=== PATIENT | female | born 1965 | race Caucasian/White ===

== ENCOUNTER 2021-02-10 12:36 | Inpatient (IN) ==
[2021-02-10] MEDS ORDERED: D5% in Water 1,000 ML IVC PRN (13:01)
[2021-02-10] MEDS ORDERED: *HR* Dextrose 50 % in Water (Vial) 50 ML VIAL IVP PRN (13:01)
[2021-02-10] MEDS ORDERED: Dextrose Gel 15 GM/37.5 ML TUBE PO PRN ×2 (13:01)
[2021-02-10] MEDS ORDERED: metroNIDAZOLE 500 MG TABLET PO SCH (15:00)
[2021-02-10] MEDS ORDERED: *HR* OxyCODONE Immed Rel 5 MG TABLET PO PRN (20:26)
[2021-02-10] MEDS: *HR* Metformin 500 MG TABLET PO SCH (21:14)
[2021-02-10] MEDS: *HR* OxyCODONE Immed Rel 5 MG TABLET PO PRN (21:14)
[2021-02-10] MEDS: Lactobacillus 1 EACH CAP.SPRINK PO SCH (21:14)
[2021-02-10] MEDS: Gabapentin 300 MG CAPSULE PO PRN (21:14)
[2021-02-10] MEDS: Famotidine 20 MG TABLET PO SCH (21:15)
[2021-02-10] MEDS: BuPROPion SR (12 HR) 150 MG TABLET PO SCH (21:15)
[2021-02-10] MEDS: Insulin LISPRO 300 UNITS/3 ML VIAL SUBQ SCH ×2 (21:16)
[2021-02-10] MEDS: tiZANidine 4 MG TABLET PO PRN (22:49)
[2021-02-10] MEDS: cefTRIAXone 2,000 MG in 0.9 % Sodium Chloride Mini Bag 100 ML IVPB SCH (22:50)
[2021-02-10] MEDS ORDERED: *HR* HYDROmorphone (PF) 1 MG/ML SYRINGE IVP ONE (23:40)
[2021-02-11] MEDS: *HR* OxyCODONE Immed Rel 5 MG TABLET PO PRN ×5 (03:56→22:49)
[2021-02-11 06:01] LABS: Basophils # 0.1 K/mcL (0.0-0.2); Basophils % 0.5 %; Eosinophils # 0.8 K/mcL (0.0-0.6); Hemoglobin 9.4 g/dL (11.5-15.4); Lymphocytes # 2.6 K/mcL (0.6-4.6); Lymphocytes % 16.3 %; Mean Corpuscular HGB Conc 32.4 g/dL (31.6-35.5); Mean Corpuscular Hemoglobin 29.1 pg (28.0-33.3); Mean Corpuscular Volume 89.8 fL (83.0-100.0); Mean Platelet Volume 9.6 fL (9.4-12.4); Monocytes % 6.3 %; Neutrophils # 11.1 K/mcL (1.6-8.9); Platelet Count 519 K/mcL (140-400); Red Blood Count 3.23 M/mcL (3.82-4.97); Segmented Neutrophils % 69.9 %; White Blood Count 15.9 K/mcL (4.3-11.1)
[2021-02-11 06:28] LABS: BUN/Creatinine Ratio 22 (6-26); Blood Urea Nitrogen 19 mg/dL (6-20); Calcium 8.8 mg/dL (8.6-10.3); Carbon Dioxide 24 mEq/L (23-29); Chloride 106 mEq/L (98-107); Glucose 144 mg/dL (70-105); Osmolality,Calculated 293 (280-300); Potassium 3.6 mEq/L (3.5-5.1); Sodium 139 mEq/L (136-145); eGFR For African Americans > 60 (> 60); eGFR For Non-African Americans > 60 (> 60)
[2021-02-11] MEDS ORDERED: DEXTROSE ISO IV SCH (09:00)
[2021-02-11] MEDS ORDERED: [UNRECOGNIZED DRUG - OTHER] IV SCH (09:00)
[2021-02-11] MEDS ORDERED: CEFTRIAXONE NA IV SCH (09:00)
[2021-02-11] MEDS: *HR* Metformin 500 MG TABLET PO SCH ×2 (09:04→17:13)
[2021-02-11] MEDS: *HR* GlipiZIDE XL (24 HR) 10 MG TABLET PO SCH (09:05)
[2021-02-11] MEDS: Gabapentin 300 MG CAPSULE PO PRN (09:06)
[2021-02-11] MEDS: Famotidine 20 MG TABLET PO SCH ×2 (09:06→21:01)
[2021-02-11] MEDS: Lactobacillus 1 EACH CAP.SPRINK PO SCH ×2 (09:06→20:59)
[2021-02-11] MEDS: BuPROPion SR (12 HR) 150 MG TABLET PO SCH ×2 (09:06→21:01)
[2021-02-11] MEDS: BISOPROLOL FUMARATE 10 MG PO SCH (09:07)
[2021-02-11] MEDS: Lisinopril-HCTZ 20-12.5mg TABLET PO SCH (09:07)
[2021-02-11] MEDS: Insulin LISPRO 300 UNITS/3 ML VIAL SUBQ SCH ×4 (09:08→21:00)
[2021-02-11] MEDS: tiZANidine 4 MG TABLET PO PRN ×2 (10:31→21:00)
[2021-02-11] MEDS ORDERED: *HR* HYDROmorphone (PF) 1 MG/ML SYRINGE IVP ONE (11:10)
[2021-02-11] MEDS: Gabapentin 300 MG CAPSULE PO SCH ×2 (17:13→21:00)
[2021-02-11] MEDS: cefTRIAXone 2,000 MG in 0.9 % Sodium Chloride Mini Bag 100 ML IVPB SCH (21:02)
[2021-02-12] MEDS: tiZANidine 4 MG TABLET PO PRN ×3 (03:44→21:12)
[2021-02-12] MEDS: *HR* OxyCODONE Immed Rel 5 MG TABLET PO PRN ×4 (03:44→18:11)
[2021-02-12] MEDS: *HR* GlipiZIDE XL (24 HR) 10 MG TABLET PO SCH (09:45)
[2021-02-12] MEDS: Lisinopril-HCTZ 20-12.5mg TABLET PO SCH (09:45)
[2021-02-12] MEDS: Famotidine 20 MG TABLET PO SCH ×2 (09:46→21:11)
[2021-02-12] MEDS: Lactobacillus 1 EACH CAP.SPRINK PO SCH ×2 (09:46→21:11)
[2021-02-12] MEDS: *HR* Metformin 500 MG TABLET PO SCH ×2 (09:46→17:25)
[2021-02-12] MEDS: Insulin LISPRO 300 UNITS/3 ML VIAL SUBQ SCH ×4 (09:46→21:11)
[2021-02-12] MEDS: Gabapentin 300 MG CAPSULE PO SCH ×4 (09:46→21:13)
[2021-02-12] MEDS: BuPROPion SR (12 HR) 150 MG TABLET PO SCH ×2 (09:46→21:11)
[2021-02-12] MEDS: BISOPROLOL FUMARATE 10 MG PO SCH (09:47)
[2021-02-12] MEDS ORDERED: *HR* HYDROmorphone 2 MG/ML SYRINGE IVP ONE (10:58)
[2021-02-12] MEDS: cefTRIAXone 2,000 MG in 0.9 % Sodium Chloride Mini Bag 100 ML IVPB SCH (21:14)
[2021-02-12] MEDS ORDERED: *HR* HYDROmorphone (PF) 1 MG/ML SYRINGE IVP ONE (21:42)
[2021-02-13] MEDS: *HR* Rivaroxaban 15 MG TABLET PO SCH ×2 (02:17→16:21)
[2021-02-13] MEDS: tiZANidine 4 MG TABLET PO PRN ×4 (02:18→23:03)
[2021-02-13] MEDS: *HR* OxyCODONE Immed Rel 5 MG TABLET PO PRN ×5 (02:18→20:41)
[2021-02-13 04:54] LABS: Basophils # 0.1 K/mcL (0.0-0.2); Basophils % 0.6 %; Eosinophils # 0.8 K/mcL (0.0-0.6); Eosinophils % 5.8 %; Hematocrit 28.7 % (35.3-44.9); Hemoglobin 9.3 g/dL (11.5-15.4); Immature Granulocytes % 2.3 % (0-4); Lymphocytes % 21.2 %; Mean Corpuscular HGB Conc 32.4 g/dL (31.6-35.5); Mean Corpuscular Hemoglobin 29.3 pg (28.0-33.3); Mean Corpuscular Volume 90.5 fL (83.0-100.0); Mean Platelet Volume 9.5 fL (9.4-12.4); Monocytes % 6.8 %; Platelet Count 507 K/mcL (140-400); Red Blood Count 3.17 M/mcL (3.82-4.97); Red Cell Distribution Width 14.2 % (11.5-14.5); Segmented Neutrophils % 63.3 %; White Blood Count 14.2 K/mcL (4.3-11.1)
[2021-02-13 05:06] LABS: BUN/Creatinine Ratio 21 (6-26); Blood Urea Nitrogen 18 mg/dL (6-20); Calcium 8.5 mg/dL (8.6-10.3); Carbon Dioxide 25 mEq/L (23-29); Chloride 106 mEq/L (98-107); Glucose 126 mg/dL (70-105); Osmolality,Calculated 289 (280-300); Potassium 4.2 mEq/L (3.5-5.1); Sodium 138 mEq/L (136-145); eGFR For African Americans > 60 (> 60); eGFR For Non-African Americans > 60 (> 60)
[2021-02-13 05:14] LABS: Platelet Estimate Increased (Normal)
[2021-02-13] MEDS: *HR* GlipiZIDE XL (24 HR) 10 MG TABLET PO SCH (07:54)
[2021-02-13] MEDS: Gabapentin 300 MG CAPSULE PO SCH ×4 (07:54→20:40)
[2021-02-13] MEDS: BuPROPion SR (12 HR) 150 MG TABLET PO SCH ×2 (07:54→20:40)
[2021-02-13] MEDS: Famotidine 20 MG TABLET PO SCH ×2 (07:54→20:40)
[2021-02-13] MEDS: *HR* Metformin 500 MG TABLET PO SCH ×2 (07:54→16:21)
[2021-02-13] MEDS: Lisinopril-HCTZ 20-12.5mg TABLET PO SCH (07:54)
[2021-02-13] MEDS: Lactobacillus 1 EACH CAP.SPRINK PO SCH ×2 (07:55→20:39)
[2021-02-13] MEDS: Insulin LISPRO 300 UNITS/3 ML VIAL SUBQ SCH ×4 (07:58→21:48)
[2021-02-13] MEDS: BISOPROLOL FUMARATE 10 MG PO SCH (09:30)
[2021-02-13] MEDS: Ondansetron ODT 4 MG TAB.RAPDIS SL PRN (20:42)
[2021-02-14] MEDS: *HR* OxyCODONE Immed Rel 5 MG TABLET PO PRN ×5 (00:44→16:03)
[2021-02-14] MEDS: Insulin LISPRO 300 UNITS/3 ML VIAL SUBQ SCH ×4 (08:31→21:09)
[2021-02-14] MEDS: Lisinopril-HCTZ 20-12.5mg TABLET PO SCH (08:32)
[2021-02-14] MEDS: Famotidine 20 MG TABLET PO SCH ×2 (08:33→21:09)
[2021-02-14] MEDS: Gabapentin 300 MG CAPSULE PO SCH ×3 (08:33→21:09)
[2021-02-14] MEDS: *HR* Rivaroxaban 15 MG TABLET PO SCH (08:33)
[2021-02-14] MEDS: tiZANidine 4 MG TABLET PO PRN ×3 (08:33→16:02)
[2021-02-14] MEDS: BuPROPion SR (12 HR) 150 MG TABLET PO SCH ×2 (08:33→21:09)
[2021-02-14] MEDS: *HR* GlipiZIDE XL (24 HR) 10 MG TABLET PO SCH (08:33)
[2021-02-14] MEDS: *HR* Metformin 500 MG TABLET PO SCH ×2 (08:33→16:16)
[2021-02-14] MEDS: Lactobacillus 1 EACH CAP.SPRINK PO SCH ×2 (08:33→21:09)
[2021-02-14] MEDS: BISOPROLOL FUMARATE 10 MG PO SCH (09:31)
[2021-02-14] MEDS ORDERED: *HR* OxyCODONE/APAP 5/325 TABLET PO PRN (20:38)
[2021-02-14] MEDS: *HR* OxyCODONE/APAP 10/325 TABLET PO PRN (21:09)
[2021-02-15] MEDS: tiZANidine 4 MG TABLET PO PRN ×3 (02:57→20:42)
[2021-02-15] MEDS: *HR* OxyCODONE/APAP 10/325 TABLET PO PRN ×5 (04:08→22:54)
[2021-02-15 04:50] LABS: Hematocrit 30.7 % (35.3-44.9); Hemoglobin 9.7 g/dL (11.5-15.4)
[2021-02-15] MEDS: Insulin LISPRO 300 UNITS/3 ML VIAL SUBQ SCH ×4 (09:36→20:43)
[2021-02-15] MEDS: *HR* GlipiZIDE XL (24 HR) 10 MG TABLET PO SCH (09:43)
[2021-02-15] MEDS: Famotidine 20 MG TABLET PO SCH ×2 (09:43→20:42)
[2021-02-15] MEDS: BuPROPion SR (12 HR) 150 MG TABLET PO SCH ×2 (09:43→20:43)
[2021-02-15] MEDS: Gabapentin 300 MG CAPSULE PO SCH ×3 (09:43→20:42)
[2021-02-15] MEDS: Lisinopril-HCTZ 20-12.5mg TABLET PO SCH (09:43)
[2021-02-15] MEDS: *HR* Metformin 500 MG TABLET PO SCH ×2 (09:43→16:15)
[2021-02-15] MEDS: Lactobacillus 1 EACH CAP.SPRINK PO SCH ×2 (09:43→20:43)
[2021-02-15] MEDS: BISOPROLOL FUMARATE 10 MG PO SCH (09:43)
[2021-02-15] MEDS ORDERED: *HR* OxyCODONE Immed Rel 5 MG TABLET PO PRN (10:06)
[2021-02-15] MEDS: *HR* Rivaroxaban 15 MG TABLET PO SCH ×2 (16:15→20:43)
[2021-02-16] MEDS: *HR* OxyCODONE/APAP 10/325 TABLET PO PRN ×5 (04:32→20:42)
[2021-02-16] MEDS: Insulin LISPRO 300 UNITS/3 ML VIAL SUBQ SCH ×4 (08:12→20:43)
[2021-02-16] MEDS: BuPROPion SR (12 HR) 150 MG TABLET PO SCH ×2 (08:17→20:42)
[2021-02-16] MEDS: Lactobacillus 1 EACH CAP.SPRINK PO SCH ×2 (08:17→20:42)
[2021-02-16] MEDS: *HR* GlipiZIDE XL (24 HR) 10 MG TABLET PO SCH (08:17)
[2021-02-16] MEDS: Lisinopril-HCTZ 20-12.5mg TABLET PO SCH (08:18)
[2021-02-16] MEDS: *HR* Rivaroxaban 15 MG TABLET PO SCH ×2 (08:18→20:42)
[2021-02-16] MEDS: Famotidine 20 MG TABLET PO SCH ×2 (08:18→20:42)
[2021-02-16] MEDS: Gabapentin 300 MG CAPSULE PO SCH ×3 (08:18→20:42)
[2021-02-16] MEDS: BISOPROLOL FUMARATE 10 MG PO SCH (08:18)
[2021-02-16] MEDS: *HR* Metformin 500 MG TABLET PO SCH ×2 (08:18→16:32)
[2021-02-16] MEDS: Nystatin POWDER 30 GM BOTTLE TP SCH ×2 (16:36→20:42)
[2021-02-16] MEDS: tiZANidine 4 MG TABLET PO PRN (20:42)
[2021-02-17] MEDS: *HR* OxyCODONE/APAP 10/325 TABLET PO PRN ×6 (00:44→21:49)
[2021-02-17] MEDS: Insulin LISPRO 300 UNITS/3 ML VIAL SUBQ SCH ×4 (07:50→21:50)
[2021-02-17] MEDS: Lactobacillus 1 EACH CAP.SPRINK PO SCH ×2 (09:29→21:50)
[2021-02-17] MEDS: *HR* Rivaroxaban 15 MG TABLET PO SCH ×2 (09:29→21:49)
[2021-02-17] MEDS: *HR* Metformin 500 MG TABLET PO SCH ×2 (09:29→17:30)
[2021-02-17] MEDS: Lisinopril-HCTZ 20-12.5mg TABLET PO SCH (09:30)
[2021-02-17] MEDS: BuPROPion SR (12 HR) 150 MG TABLET PO SCH ×2 (09:30→21:50)
[2021-02-17] MEDS: Famotidine 20 MG TABLET PO SCH ×2 (09:30→21:50)
[2021-02-17] MEDS: BISOPROLOL FUMARATE 10 MG PO SCH (09:30)
[2021-02-17] MEDS: *HR* GlipiZIDE XL (24 HR) 10 MG TABLET PO SCH (09:30)
[2021-02-17] MEDS: Gabapentin 300 MG CAPSULE PO SCH ×3 (09:30→21:50)
[2021-02-17] MEDS: Nystatin POWDER 30 GM BOTTLE TP SCH ×2 (09:30→21:50)
[2021-02-17] MEDS: tiZANidine 4 MG TABLET PO PRN (21:50)
[2021-02-18] MEDS: *HR* OxyCODONE/APAP 10/325 TABLET PO PRN ×4 (02:52→18:54)
[2021-02-18] MEDS: Insulin LISPRO 300 UNITS/3 ML VIAL SUBQ SCH ×4 (08:47→21:38)
[2021-02-18] MEDS: *HR* Metformin 500 MG TABLET PO SCH ×2 (09:04→16:58)
[2021-02-18] MEDS: *HR* GlipiZIDE XL (24 HR) 10 MG TABLET PO SCH (09:04)
[2021-02-18] MEDS: Gabapentin 300 MG CAPSULE PO SCH ×3 (09:04→21:37)
[2021-02-18] MEDS: Lisinopril-HCTZ 20-12.5mg TABLET PO SCH (09:05)
[2021-02-18] MEDS: *HR* Rivaroxaban 15 MG TABLET PO SCH ×2 (09:05→21:38)
[2021-02-18] MEDS: Famotidine 20 MG TABLET PO SCH ×2 (09:05→21:37)
[2021-02-18] MEDS: BuPROPion SR (12 HR) 150 MG TABLET PO SCH ×2 (09:05→21:37)
[2021-02-18] MEDS: BISOPROLOL FUMARATE 10 MG PO SCH (09:05)
[2021-02-18] MEDS: Nystatin POWDER 30 GM BOTTLE TP SCH ×2 (09:05→21:38)
[2021-02-18] MEDS: Lactobacillus 1 EACH CAP.SPRINK PO SCH ×2 (09:05→21:37)
[2021-02-18] MEDS: tiZANidine 4 MG TABLET PO PRN (18:54)
[2021-02-19] MEDS: *HR* OxyCODONE/APAP 10/325 TABLET PO PRN ×5 (02:37→21:54)
[2021-02-19 06:47] LABS: Hematocrit 31.7 % (35.3-44.9); Mean Corpuscular HGB Conc 31.5 g/dL (31.6-35.5); Mean Corpuscular Hemoglobin 28.6 pg (28.0-33.3); Mean Corpuscular Volume 90.6 fL (83.0-100.0); Mean Platelet Volume 9.6 fL (9.4-12.4); Platelet Count 476 K/mcL (140-400); Red Cell Distribution Width 13.7 % (11.5-14.5); White Blood Count 11.3 K/mcL (4.3-11.1)
[2021-02-19] MEDS: Gabapentin 300 MG CAPSULE PO SCH ×3 (08:43→21:53)
[2021-02-19] MEDS: *HR* Metformin 500 MG TABLET PO SCH ×2 (08:43→16:11)
[2021-02-19] MEDS: *HR* Rivaroxaban 15 MG TABLET PO SCH ×2 (08:43→21:53)
[2021-02-19] MEDS: *HR* GlipiZIDE XL (24 HR) 10 MG TABLET PO SCH (08:44)
[2021-02-19] MEDS: Famotidine 20 MG TABLET PO SCH ×2 (08:44→21:54)
[2021-02-19] MEDS: Lisinopril-HCTZ 20-12.5mg TABLET PO SCH (08:44)
[2021-02-19] MEDS: BuPROPion SR (12 HR) 150 MG TABLET PO SCH ×2 (08:44→21:54)
[2021-02-19] MEDS: Lactobacillus 1 EACH CAP.SPRINK PO SCH ×2 (08:44→21:53)
[2021-02-19] MEDS: BISOPROLOL FUMARATE 10 MG PO SCH (08:45)
[2021-02-19 11:45] LABS: Alanine Aminotransferase 20 Units/L (7-52); Albumin 3.6 g/dL (3.5-5.7); Albumin/Globulin Ratio 1.2 (1.1-2.2); Alkaline Phosphatase 64 Units/L (34-104); Aspartate Amino Transferase 19 Units/L (13-39); BUN/Creatinine Ratio 32 (6-26); Bilirubin,Total 0.2 mg/dL (0.3-1.0); Blood Urea Nitrogen 29 mg/dL (6-20); Calcium 9.7 mg/dL (8.6-10.3); Carbon Dioxide 24 mEq/L (23-29); Chloride 103 mEq/L (98-107); Glucose 102 mg/dL (70-105); Magnesium 1.4 mg/dL (1.6-2.6); Osmolality,Calculated 288 (280-300); Potassium 4.3 mEq/L (3.5-5.1); Sodium 136 mEq/L (136-145); Total Protein 6.6 g/dL (6.4-8.9); eGFR For African Americans > 60 (> 60); eGFR For Non-African Americans > 60 (> 60)
[2021-02-19 11:50] LABS: C-Reactive Protein 11 mg/L (Less than 10)
[2021-02-19] MEDS: Insulin LISPRO 300 UNITS/3 ML VIAL SUBQ SCH ×3 (12:19→21:55)
[2021-02-19] MEDS: Nystatin POWDER 30 GM BOTTLE TP SCH ×2 (12:19→21:55)
[2021-02-19] MEDS: tiZANidine 4 MG TABLET PO PRN (21:53)
[2021-02-20] MEDS: *HR* OxyCODONE/APAP 10/325 TABLET PO PRN ×5 (02:07→23:01)
[2021-02-20] MEDS: Ondansetron ODT 4 MG TAB.RAPDIS SL PRN (02:08)
[2021-02-20] MEDS: BuPROPion SR (12 HR) 150 MG TABLET PO SCH ×2 (08:34→21:02)
[2021-02-20] MEDS: tiZANidine 4 MG TABLET PO PRN ×2 (08:35→21:03)
[2021-02-20] MEDS: *HR* Metformin 500 MG TABLET PO SCH ×2 (08:35→17:27)
[2021-02-20] MEDS: Nystatin POWDER 30 GM BOTTLE TP SCH ×2 (08:35→21:02)
[2021-02-20] MEDS: *HR* GlipiZIDE XL (24 HR) 10 MG TABLET PO SCH (08:35)
[2021-02-20] MEDS: Lactobacillus 1 EACH CAP.SPRINK PO SCH ×2 (08:35→21:01)
[2021-02-20] MEDS: *HR* Rivaroxaban 15 MG TABLET PO SCH ×2 (08:35→21:03)
[2021-02-20] MEDS: Insulin LISPRO 300 UNITS/3 ML VIAL SUBQ SCH ×4 (08:35→21:00)
[2021-02-20] MEDS: Gabapentin 300 MG CAPSULE PO SCH ×3 (08:35→21:02)
[2021-02-20] MEDS: Famotidine 20 MG TABLET PO SCH ×2 (08:35→21:02)
[2021-02-20] MEDS: BISOPROLOL FUMARATE 10 MG PO SCH (08:36)
[2021-02-20] MEDS: Lisinopril-HCTZ 20-12.5mg TABLET PO SCH (08:37)
[2021-02-21] MEDS: *HR* OxyCODONE/APAP 10/325 TABLET PO PRN ×4 (04:44→18:42)
[2021-02-21] MEDS: Insulin LISPRO 300 UNITS/3 ML VIAL SUBQ SCH ×4 (08:39→19:57)
[2021-02-21] MEDS: *HR* GlipiZIDE XL (24 HR) 10 MG TABLET PO SCH (08:48)
[2021-02-21] MEDS: Gabapentin 300 MG CAPSULE PO SCH ×3 (08:48→19:56)
[2021-02-21] MEDS: BISOPROLOL FUMARATE 10 MG PO SCH (08:48)
[2021-02-21] MEDS: BuPROPion SR (12 HR) 150 MG TABLET PO SCH ×2 (08:48→19:56)
[2021-02-21] MEDS: *HR* Metformin 500 MG TABLET PO SCH ×2 (08:48→16:31)
[2021-02-21] MEDS: Famotidine 20 MG TABLET PO SCH ×2 (08:48→19:56)
[2021-02-21] MEDS: *HR* Rivaroxaban 15 MG TABLET PO SCH ×2 (08:48→19:57)
[2021-02-21] MEDS: Lactobacillus 1 EACH CAP.SPRINK PO SCH ×2 (08:48→19:56)
[2021-02-21] MEDS: Nystatin POWDER 30 GM BOTTLE TP SCH ×2 (08:48→19:56)
[2021-02-21] MEDS: Lisinopril-HCTZ 20-12.5mg TABLET PO SCH (08:48)
[2021-02-21] MEDS: tiZANidine 4 MG TABLET PO PRN ×2 (12:53→19:56)
[2021-02-22] MEDS: *HR* OxyCODONE/APAP 10/325 TABLET PO PRN ×4 (02:16→21:20)
[2021-02-22] MEDS: Insulin LISPRO 300 UNITS/3 ML VIAL SUBQ SCH ×4 (08:50→21:20)
[2021-02-22] MEDS: *HR* Rivaroxaban 15 MG TABLET PO SCH ×2 (09:48→21:20)
[2021-02-22] MEDS: BuPROPion SR (12 HR) 150 MG TABLET PO SCH ×2 (09:48→21:20)
[2021-02-22] MEDS: *HR* Metformin 500 MG TABLET PO SCH ×2 (09:48→17:03)
[2021-02-22] MEDS: Famotidine 20 MG TABLET PO SCH ×2 (09:48→21:20)
[2021-02-22] MEDS: *HR* GlipiZIDE XL (24 HR) 10 MG TABLET PO SCH (09:48)
[2021-02-22] MEDS: Lactobacillus 1 EACH CAP.SPRINK PO SCH ×2 (09:48→21:20)
[2021-02-22] MEDS: Gabapentin 300 MG CAPSULE PO SCH ×3 (09:48→21:20)
[2021-02-22] MEDS: Lisinopril-HCTZ 20-12.5mg TABLET PO SCH (09:49)
[2021-02-22] MEDS: BISOPROLOL FUMARATE 10 MG PO SCH (09:49)
[2021-02-22] MEDS: Nystatin POWDER 30 GM BOTTLE TP SCH ×2 (09:49→21:21)
[2021-02-22] MEDS: tiZANidine 4 MG TABLET PO PRN ×2 (09:53→17:03)
[2021-02-22] MEDS ORDERED: Fluconazole 150 MG TABLET PO ONE (16:32)
[2021-02-23] MEDS: *HR* OxyCODONE/APAP 10/325 TABLET PO PRN ×3 (01:14→12:27)
[2021-02-23] MEDS: tiZANidine 4 MG TABLET PO PRN ×2 (01:16→12:28)
[2021-02-23 07:32] VITALS: BP 104/71; PULSE 73; RESP 16; TEMP 98; O2SAT 99
[2021-02-23] MEDS: BuPROPion SR (12 HR) 150 MG TABLET PO SCH (07:32)
[2021-02-23] MEDS: *HR* GlipiZIDE XL (24 HR) 10 MG TABLET PO SCH (07:32)
[2021-02-23] MEDS: *HR* Metformin 500 MG TABLET PO SCH (07:32)
[2021-02-23] MEDS: *HR* Rivaroxaban 15 MG TABLET PO SCH (07:32)
[2021-02-23] MEDS: Lactobacillus 1 EACH CAP.SPRINK PO SCH (07:32)
[2021-02-23] MEDS: Famotidine 20 MG TABLET PO SCH (07:32)
[2021-02-23] MEDS: Gabapentin 300 MG CAPSULE PO SCH (07:32)
[2021-02-23] MEDS: Lisinopril-HCTZ 20-12.5mg TABLET PO SCH (07:34)
[2021-02-23] MEDS: Insulin LISPRO 300 UNITS/3 ML VIAL SUBQ SCH ×2 (07:35→13:26)
[2021-02-23] MEDS: Nystatin POWDER 30 GM BOTTLE TP SCH (07:36)
[2021-02-23] MEDS: BISOPROLOL FUMARATE 10 MG PO SCH (07:36)
== END 2021-02-23 14:10 | disposition home health service (06) | DRG 560 ==
LOC: INPGRE 19:12
PROVIDERS: ADMIT Family Medicine; ATTEND Family Medicine

== ENCOUNTER 2021-08-30 15:37 | Inpatient (IN) ==
[2021-09-01] MEDS ORDERED: Ondansetron ODT 4 MG TAB.RAPDIS PO PRN (15:55)
[2021-09-01] MEDS: *HR* Metformin 500 MG TABLET PO SCH (21:31)
[2021-09-01] MEDS: Gabapentin 300 MG CAPSULE PO SCH (21:32)
[2021-09-01] MEDS: *HR* OxyCODONE ER (12 HR) 10 MG TABLET PO SCH (21:35)
[2021-09-01] MEDS: cephALEXin 500 MG CAPSULE PO SCH (21:36)
[2021-09-01] MEDS: Lactobacillus 1 EACH CAP.SPRINK PO SCH (21:36)
[2021-09-01] MEDS: BuPROPion SR (12 HR) 150 MG TABLET PO SCH (21:37)
[2021-09-01] MEDS: tiZANidine 4 MG TABLET PO PRN (21:39)
[2021-09-02] MEDS: *HR* OxyCODONE/APAP 10/325 TABLET PO PRN ×4 (01:26→20:54)
[2021-09-02] MEDS: Gabapentin 300 MG CAPSULE PO SCH ×3 (05:43→20:55)
[2021-09-02] MEDS: *HR* OxyCODONE ER (12 HR) 10 MG TABLET PO SCH ×2 (05:44→17:39)
[2021-09-02] MEDS: tiZANidine 4 MG TABLET PO PRN ×2 (06:29→20:54)
[2021-09-02] MEDS: Lisinopril-HCTZ 20-12.5mg TABLET PO SCH (08:50)
[2021-09-02] MEDS: GlipiZIDE 5 MG TABLET PO SCH (08:50)
[2021-09-02] MEDS: *HR* Metformin 500 MG TABLET PO SCH ×2 (08:50→20:55)
[2021-09-02] MEDS: BuPROPion SR (12 HR) 150 MG TABLET PO SCH ×2 (08:50→20:54)
[2021-09-02] MEDS: Lactobacillus 1 EACH CAP.SPRINK PO SCH ×2 (08:50→20:55)
[2021-09-02] MEDS: cephALEXin 500 MG CAPSULE PO SCH ×2 (08:50→20:55)
[2021-09-02] MEDS: BISOPROLOL FUMARATE 10 MG PO SCH (08:54)
[2021-09-02 09:20] LABS: Basophils # 0.2 K/mcL (0.0-0.2); Basophils % 0.8 %; Eosinophils # 0.6 K/mcL (0.0-0.6); Eosinophils % 3.3 %; Hematocrit 30.5 % (35.3-44.9); Hemoglobin 9.8 g/dL (11.5-15.4); Immature Granulocytes % 4.8 % (0-4); Lymphocytes # 2.7 K/mcL (0.6-4.6); Mean Corpuscular HGB Conc 32.1 g/dL (31.6-35.5); Mean Corpuscular Hemoglobin 28.4 pg (28.0-33.3); Mean Corpuscular Volume 88.4 fL (83.0-100.0); Mean Platelet Volume 9.5 fL (9.4-12.4); Monocytes # 0.8 K/mcL (0.0-1.3); Monocytes % 4.3 %; Neutrophils # 14.1 K/mcL (1.6-8.9); Nucleated Red Blood Cells 0.1 /100 WBC (0); Platelet Count 747 K/mcL (140-400); Red Blood Count 3.45 M/mcL (3.82-4.97); Red Cell Distribution Width 14.3 % (11.5-14.5); Segmented Neutrophils % 72.8 %; White Blood Count 19.4 K/mcL (4.3-11.1)
[2021-09-02 09:43] LABS: BUN/Creatinine Ratio 24 (6-26); Blood Urea Nitrogen 23 mg/dL (6-20); Calcium 8.6 mg/dL (8.6-10.3); Carbon Dioxide 24 mEq/L (23-29); Chloride 102 mEq/L (98-107); Glucose 284 mg/dL (70-105); Osmolality,Calculated 296 (280-300); Potassium 3.9 mEq/L (3.5-5.1); Sodium 136 mEq/L (136-145); eGFR For African Americans > 60 (> 60); eGFR For Non-African Americans > 60 (> 60)
[2021-09-02] MEDS ORDERED: Dextrose 4 GM Chewable Tablets PO PRN ×2 (15:03)
[2021-09-02] MEDS ORDERED: *HR* Dextrose 50 % in Water (Syg) 50 ML SYRINGE IVP PRN (15:03)
[2021-09-02] MEDS ORDERED: D5% in Water 1,000 ML IVC PRN (15:03)
[2021-09-02] MEDS: Insulin LISPRO 300 UNITS/3 ML VIAL SUBQ SCH ×2 (17:39→20:32)
[2021-09-03] MEDS: *HR* OxyCODONE/APAP 10/325 TABLET PO PRN ×5 (00:46→21:26)
[2021-09-03] MEDS: tiZANidine 4 MG TABLET PO PRN ×3 (04:01→20:49)
[2021-09-03] MEDS: *HR* OxyCODONE ER (12 HR) 10 MG TABLET PO SCH ×2 (05:55→18:06)
[2021-09-03] MEDS: BuPROPion SR (12 HR) 150 MG TABLET PO SCH ×2 (08:04→20:49)
[2021-09-03] MEDS: GlipiZIDE 5 MG TABLET PO SCH (08:04)
[2021-09-03] MEDS: *HR* Metformin 500 MG TABLET PO SCH ×2 (08:04→20:49)
[2021-09-03] MEDS: Lactobacillus 1 EACH CAP.SPRINK PO SCH ×2 (08:04→20:50)
[2021-09-03] MEDS: cephALEXin 500 MG CAPSULE PO SCH ×2 (08:04→20:49)
[2021-09-03] MEDS: Gabapentin 300 MG CAPSULE PO SCH ×3 (08:04→20:49)
[2021-09-03] MEDS: Insulin LISPRO 300 UNITS/3 ML VIAL SUBQ SCH ×4 (08:04→20:45)
[2021-09-03] MEDS: Lisinopril-HCTZ 20-12.5mg TABLET PO SCH (08:04)
[2021-09-03] MEDS: BISOPROLOL FUMARATE 10 MG PO SCH (08:05)
[2021-09-04] MEDS: *HR* OxyCODONE/APAP 10/325 TABLET PO PRN ×5 (03:19→20:07)
[2021-09-04 04:37] LABS: Basophils # 0.2 K/mcL (0.0-0.2); Basophils % 0.9 %; Eosinophils # 0.7 K/mcL (0.0-0.6); Eosinophils % 3.8 %; Hematocrit 31.6 % (35.3-44.9); Hemoglobin 10.2 g/dL (11.5-15.4); Immature Granulocytes % 4.6 % (0-4); Lymphocytes # 3.5 K/mcL (0.6-4.6); Lymphocytes % 20.1 %; Mean Corpuscular HGB Conc 32.3 g/dL (31.6-35.5); Mean Corpuscular Hemoglobin 28.4 pg (28.0-33.3); Mean Platelet Volume 9.5 fL (9.4-12.4); Monocytes # 0.9 K/mcL (0.0-1.3); Neutrophils # 11.4 K/mcL (1.6-8.9); Platelet Count 746 K/mcL (140-400); Red Blood Count 3.59 M/mcL (3.82-4.97); Red Cell Distribution Width 14.3 % (11.5-14.5); Segmented Neutrophils % 65.6 %; White Blood Count 17.4 K/mcL (4.3-11.1)
[2021-09-04 04:54] LABS: Alanine Aminotransferase 29 Units/L (7-52); Albumin 3.4 g/dL (3.5-5.7); Albumin/Globulin Ratio 1.1 (1.1-2.2); Alkaline Phosphatase 104 Units/L (34-104); Aspartate Amino Transferase 19 Units/L (13-39); BUN/Creatinine Ratio 32 (6-26); Bilirubin,Total 0.3 mg/dL (0.3-1.0); Blood Urea Nitrogen 28 mg/dL (6-20); Calcium 9.1 mg/dL (8.6-10.3); Carbon Dioxide 25 mEq/L (23-29); Chloride 101 mEq/L (98-107); Globulin 3.2 g/dL (2.4-3.5); Glucose 168 mg/dL (70-105); Magnesium 1.3 mg/dL (1.6-2.6); Osmolality,Calculated 293 (280-300); Potassium 3.9 mEq/L (3.5-5.1); Sodium 137 mEq/L (136-145); Total Protein 6.6 g/dL (6.4-8.9); eGFR For African Americans > 60 (> 60); eGFR For Non-African Americans > 60 (> 60)
[2021-09-04] MEDS: *HR* OxyCODONE ER (12 HR) 10 MG TABLET PO SCH ×2 (06:03→17:36)
[2021-09-04] MEDS: Gabapentin 300 MG CAPSULE PO SCH ×3 (08:27→20:03)
[2021-09-04] MEDS: GlipiZIDE 5 MG TABLET PO SCH (08:27)
[2021-09-04] MEDS: cephALEXin 500 MG CAPSULE PO SCH (08:27)
[2021-09-04] MEDS: *HR* Metformin 500 MG TABLET PO SCH ×2 (08:27→20:02)
[2021-09-04] MEDS: Lisinopril-HCTZ 20-12.5mg TABLET PO SCH (08:27)
[2021-09-04] MEDS: BuPROPion SR (12 HR) 150 MG TABLET PO SCH ×2 (08:28→20:02)
[2021-09-04] MEDS: Insulin LISPRO 300 UNITS/3 ML VIAL SUBQ SCH ×4 (08:29→20:03)
[2021-09-04] MEDS: BISOPROLOL FUMARATE 10 MG PO SCH (08:31)
[2021-09-04] MEDS: tiZANidine 4 MG TABLET PO PRN (09:51)
[2021-09-04] MEDS: Lactobacillus 1 EACH CAP.SPRINK PO SCH ×2 (09:52→20:03)
[2021-09-04] MEDS ORDERED: Gabapentin 300 MG CAPSULE PO ONE (10:33)
[2021-09-04] MEDS: Amoxicillin 500 MG CAPSULE PO SCH (15:09)
[2021-09-05] MEDS: *HR* OxyCODONE/APAP 10/325 TABLET PO PRN ×5 (00:18→20:53)
[2021-09-05] MEDS: Amoxicillin 500 MG CAPSULE PO SCH ×3 (00:18→16:41)
[2021-09-05] MEDS: tiZANidine 4 MG TABLET PO PRN ×3 (00:32→18:53)
[2021-09-05] MEDS: *HR* OxyCODONE ER (12 HR) 10 MG TABLET PO SCH ×2 (06:08→17:49)
[2021-09-05] MEDS: *HR* Enoxaparin 40 MG/0.4 ML SYRINGE SQ SCH (06:08)
[2021-09-05] MEDS: Insulin LISPRO 300 UNITS/3 ML VIAL SUBQ SCH ×4 (08:38→19:57)
[2021-09-05] MEDS: GlipiZIDE 5 MG TABLET PO SCH (08:39)
[2021-09-05] MEDS: BuPROPion SR (12 HR) 150 MG TABLET PO SCH ×2 (08:39→19:45)
[2021-09-05] MEDS: Lisinopril-HCTZ 20-12.5mg TABLET PO SCH (08:39)
[2021-09-05] MEDS: Lactobacillus 1 EACH CAP.SPRINK PO SCH ×2 (08:39→19:46)
[2021-09-05] MEDS: Gabapentin 300 MG CAPSULE PO SCH ×3 (08:39→19:45)
[2021-09-05] MEDS: *HR* Metformin 500 MG TABLET PO SCH ×2 (08:40→19:46)
[2021-09-05] MEDS: BISOPROLOL FUMARATE 10 MG PO SCH (08:40)
[2021-09-06] MEDS: Amoxicillin 500 MG CAPSULE PO SCH ×3 (01:49→17:02)
[2021-09-06] MEDS: *HR* OxyCODONE/APAP 10/325 TABLET PO PRN ×4 (01:49→21:00)
[2021-09-06] MEDS: *HR* Enoxaparin 40 MG/0.4 ML SYRINGE SQ SCH (05:08)
[2021-09-06] MEDS: *HR* OxyCODONE ER (12 HR) 10 MG TABLET PO SCH ×2 (05:08→17:02)
[2021-09-06 05:52] LABS: Hematocrit 32.4 % (35.3-44.9); Hemoglobin 10.5 g/dL (11.5-15.4); Mean Corpuscular HGB Conc 32.4 g/dL (31.6-35.5); Mean Corpuscular Hemoglobin 28.2 pg (28.0-33.3); Mean Corpuscular Volume 87.1 fL (83.0-100.0); Mean Platelet Volume 9.8 fL (9.4-12.4); Platelet Count 733 K/mcL (140-400); Red Blood Count 3.72 M/mcL (3.82-4.97); Red Cell Distribution Width 14.3 % (11.5-14.5); White Blood Count 14.1 K/mcL (4.3-11.1)
[2021-09-06 06:09] LABS: Alanine Aminotransferase 23 Units/L (7-52); Albumin 3.5 g/dL (3.5-5.7); Albumin/Globulin Ratio 1.1 (1.1-2.2); Alkaline Phosphatase 101 Units/L (34-104); Aspartate Amino Transferase 13 Units/L (13-39); BUN/Creatinine Ratio 33 (6-26); Bilirubin,Total 0.3 mg/dL (0.3-1.0); Blood Urea Nitrogen 31 mg/dL (6-20); Calcium 8.9 mg/dL (8.6-10.3); Carbon Dioxide 23 mEq/L (23-29); Chloride 103 mEq/L (98-107); Globulin 3.1 g/dL (2.4-3.5); Glucose 174 mg/dL (70-105); Osmolality,Calculated 295 (280-300); Potassium 4.2 mEq/L (3.5-5.1); Sodium 137 mEq/L (136-145); Total Protein 6.6 g/dL (6.4-8.9); eGFR For African Americans > 60 (> 60); eGFR For Non-African Americans > 60 (> 60)
[2021-09-06 07:00] LABS: Magnesium 1.1 mg/dL (1.6-2.6)
[2021-09-06] MEDS: BuPROPion SR (12 HR) 150 MG TABLET PO SCH ×2 (08:02→21:00)
[2021-09-06] MEDS: Lisinopril-HCTZ 20-12.5mg TABLET PO SCH (08:02)
[2021-09-06] MEDS: GlipiZIDE 5 MG TABLET PO SCH (08:02)
[2021-09-06] MEDS: Lactobacillus 1 EACH CAP.SPRINK PO SCH ×2 (08:02→21:00)
[2021-09-06] MEDS: *HR* Metformin 500 MG TABLET PO SCH ×2 (08:02→21:00)
[2021-09-06] MEDS: BISOPROLOL FUMARATE 10 MG PO SCH (08:02)
[2021-09-06] MEDS: Gabapentin 300 MG CAPSULE PO SCH ×3 (08:02→21:00)
[2021-09-06] MEDS: Insulin LISPRO 300 UNITS/3 ML VIAL SUBQ SCH ×4 (08:03→21:01)
[2021-09-06] MEDS: tiZANidine 4 MG TABLET PO PRN ×2 (09:30→13:01)
[2021-09-06] MEDS: Magnesium Oxide 400 MG TABLET PO SCH ×2 (11:23→21:00)
[2021-09-06] MEDS ORDERED: *HR* OxyCODONE/APAP 5/325 TABLET PO ONE (14:19)
[2021-09-07] MEDS: Amoxicillin 500 MG CAPSULE PO SCH ×3 (01:32→16:46)
[2021-09-07] MEDS: *HR* OxyCODONE/APAP 10/325 TABLET PO PRN ×5 (01:34→20:55)
[2021-09-07] MEDS: *HR* OxyCODONE ER (12 HR) 10 MG TABLET PO SCH ×2 (06:01→18:23)
[2021-09-07] MEDS: *HR* Enoxaparin 40 MG/0.4 ML SYRINGE SQ SCH (06:02)
[2021-09-07 06:04] LABS: Basophils # 0.1 K/mcL (0.0-0.2); Basophils % 0.7 %; Eosinophils # 0.4 K/mcL (0.0-0.6); Eosinophils % 2.9 %; Hematocrit 32.1 % (35.3-44.9); Hemoglobin 10.5 g/dL (11.5-15.4); Immature Granulocytes % 1.7 % (0-4); Lymphocytes # 4.3 K/mcL (0.6-4.6); Lymphocytes % 32.9 %; Mean Corpuscular HGB Conc 32.7 g/dL (31.6-35.5); Mean Corpuscular Hemoglobin 28.7 pg (28.0-33.3); Mean Corpuscular Volume 87.7 fL (83.0-100.0); Mean Platelet Volume 9.9 fL (9.4-12.4); Monocytes # 0.8 K/mcL (0.0-1.3); Monocytes % 6.4 %; Neutrophils # 7.2 K/mcL (1.6-8.9); Platelet Count 707 K/mcL (140-400); Red Blood Count 3.66 M/mcL (3.82-4.97); Red Cell Distribution Width 14.2 % (11.5-14.5); Segmented Neutrophils % 55.4 %
[2021-09-07 06:20] LABS: BUN/Creatinine Ratio 32 (6-26); Blood Urea Nitrogen 36 mg/dL (6-20); Calcium 8.9 mg/dL (8.6-10.3); Carbon Dioxide 23 mEq/L (23-29); Chloride 103 mEq/L (98-107); Glucose 155 mg/dL (70-105); Magnesium 1.2 mg/dL (1.6-2.6); Osmolality,Calculated 295 (280-300); Potassium 4.1 mEq/L (3.5-5.1); Sodium 137 mEq/L (136-145); eGFR For African Americans > 60 (> 60); eGFR For Non-African Americans 51 (> 60)
[2021-09-07 07:05] LABS: Platelet Estimate Increased (Normal)
[2021-09-07] MEDS: *HR* Metformin 500 MG TABLET PO SCH ×2 (08:11→20:15)
[2021-09-07] MEDS: Gabapentin 300 MG CAPSULE PO SCH ×3 (08:11→20:15)
[2021-09-07] MEDS: GlipiZIDE 5 MG TABLET PO SCH (08:11)
[2021-09-07] MEDS: Lactobacillus 1 EACH CAP.SPRINK PO SCH ×2 (08:11→20:15)
[2021-09-07] MEDS: Insulin LISPRO 300 UNITS/3 ML VIAL SUBQ SCH ×4 (08:11→20:14)
[2021-09-07] MEDS: BuPROPion SR (12 HR) 150 MG TABLET PO SCH ×2 (08:12→20:14)
[2021-09-07] MEDS: Magnesium Oxide 400 MG TABLET PO SCH ×2 (08:12→20:15)
[2021-09-07] MEDS: BISOPROLOL FUMARATE 10 MG PO SCH (08:13)
[2021-09-07] MEDS: lisinopriL 20 MG TABLET PO SCH (08:13)
[2021-09-07] MEDS: tiZANidine 4 MG TABLET PO PRN (20:14)
[2021-09-08] MEDS: Amoxicillin 500 MG CAPSULE PO SCH ×4 (00:54→23:38)
[2021-09-08] MEDS: *HR* OxyCODONE/APAP 10/325 TABLET PO PRN ×4 (00:55→20:53)
[2021-09-08] MEDS: *HR* Enoxaparin 40 MG/0.4 ML SYRINGE SQ SCH (06:01)
[2021-09-08] MEDS: *HR* OxyCODONE ER (12 HR) 10 MG TABLET PO SCH ×2 (06:02→17:51)
[2021-09-08] MEDS: lisinopriL 20 MG TABLET PO SCH (08:05)
[2021-09-08] MEDS: *HR* Metformin 500 MG TABLET PO SCH ×2 (08:05→20:53)
[2021-09-08] MEDS: GlipiZIDE 5 MG TABLET PO SCH (08:05)
[2021-09-08] MEDS: Gabapentin 300 MG CAPSULE PO SCH ×3 (08:05→20:54)
[2021-09-08] MEDS: BuPROPion SR (12 HR) 150 MG TABLET PO SCH ×2 (08:05→20:54)
[2021-09-08] MEDS: BISOPROLOL FUMARATE 10 MG PO SCH (08:06)
[2021-09-08] MEDS: Magnesium Oxide 400 MG TABLET PO SCH ×2 (08:06→20:54)
[2021-09-08] MEDS: tiZANidine 4 MG TABLET PO PRN ×3 (08:06→23:38)
[2021-09-08] MEDS: Lactobacillus 1 EACH CAP.SPRINK PO SCH ×2 (08:06→20:54)
[2021-09-08] MEDS: Insulin LISPRO 300 UNITS/3 ML VIAL SUBQ SCH ×4 (08:07→20:43)
[2021-09-09] MEDS: *HR* OxyCODONE/APAP 10/325 TABLET PO PRN ×5 (00:58→20:33)
[2021-09-09] MEDS: *HR* Enoxaparin 40 MG/0.4 ML SYRINGE SQ SCH (05:06)
[2021-09-09] MEDS: *HR* OxyCODONE ER (12 HR) 10 MG TABLET PO SCH ×2 (05:07→17:48)
[2021-09-09] MEDS: tiZANidine 4 MG TABLET PO PRN ×2 (08:05→23:48)
[2021-09-09] MEDS: lisinopriL 20 MG TABLET PO SCH (08:05)
[2021-09-09] MEDS: Magnesium Oxide 400 MG TABLET PO SCH ×2 (08:05→20:33)
[2021-09-09] MEDS: GlipiZIDE 5 MG TABLET PO SCH (08:05)
[2021-09-09] MEDS: Amoxicillin 500 MG CAPSULE PO SCH ×3 (08:06→23:48)
[2021-09-09] MEDS: Gabapentin 300 MG CAPSULE PO SCH ×3 (08:06→20:33)
[2021-09-09] MEDS: BuPROPion SR (12 HR) 150 MG TABLET PO SCH ×2 (08:06→20:33)
[2021-09-09] MEDS: Lactobacillus 1 EACH CAP.SPRINK PO SCH ×2 (08:06→20:33)
[2021-09-09] MEDS: *HR* Metformin 500 MG TABLET PO SCH ×2 (08:06→20:32)
[2021-09-09] MEDS: BISOPROLOL FUMARATE 10 MG PO SCH (08:07)
[2021-09-09] MEDS: Insulin LISPRO 300 UNITS/3 ML VIAL SUBQ SCH ×4 (08:08→20:32)
[2021-09-10] MEDS: *HR* OxyCODONE/APAP 10/325 TABLET PO PRN ×5 (02:18→22:15)
[2021-09-10] MEDS: *HR* OxyCODONE ER (12 HR) 10 MG TABLET PO SCH ×2 (05:31→16:53)
[2021-09-10] MEDS: *HR* Enoxaparin 40 MG/0.4 ML SYRINGE SQ SCH (05:31)
[2021-09-10] MEDS: GlipiZIDE 5 MG TABLET PO SCH (07:40)
[2021-09-10] MEDS: Lactobacillus 1 EACH CAP.SPRINK PO SCH ×2 (07:41→22:15)
[2021-09-10] MEDS: BuPROPion SR (12 HR) 150 MG TABLET PO SCH ×2 (07:41→22:15)
[2021-09-10] MEDS: Gabapentin 300 MG CAPSULE PO SCH ×3 (07:41→22:15)
[2021-09-10] MEDS: lisinopriL 20 MG TABLET PO SCH (07:42)
[2021-09-10] MEDS: Amoxicillin 500 MG CAPSULE PO SCH ×3 (07:42→22:15)
[2021-09-10] MEDS: Insulin LISPRO 300 UNITS/3 ML VIAL SUBQ SCH ×4 (07:42→22:16)
[2021-09-10] MEDS: Magnesium Oxide 400 MG TABLET PO SCH ×2 (07:42→22:15)
[2021-09-10] MEDS: *HR* Metformin 500 MG TABLET PO SCH ×2 (07:42→22:16)
[2021-09-10] MEDS: tiZANidine 4 MG TABLET PO PRN (07:42)
[2021-09-10] MEDS: BISOPROLOL FUMARATE 10 MG PO SCH (07:43)
[2021-09-11 05:01] LABS: Hematocrit 33.2 % (35.3-44.9); Hemoglobin 10.8 g/dL (11.5-15.4); Mean Corpuscular HGB Conc 32.5 g/dL (31.6-35.5); Mean Corpuscular Hemoglobin 28.3 pg (28.0-33.3); Mean Corpuscular Volume 87.1 fL (83.0-100.0); Mean Platelet Volume 9.8 fL (9.4-12.4); Platelet Count 531 K/mcL (140-400); Red Blood Count 3.81 M/mcL (3.82-4.97); Red Cell Distribution Width 13.9 % (11.5-14.5); White Blood Count 11.4 K/mcL (4.3-11.1)
[2021-09-11] MEDS: *HR* OxyCODONE ER (12 HR) 10 MG TABLET PO SCH ×2 (05:04→17:11)
[2021-09-11] MEDS: *HR* Enoxaparin 40 MG/0.4 ML SYRINGE SQ SCH (05:04)
[2021-09-11] MEDS: tiZANidine 4 MG TABLET PO PRN ×3 (05:10→19:50)
[2021-09-11 05:17] LABS: Alanine Aminotransferase 19 Units/L (7-52); Albumin 3.7 g/dL (3.5-5.7); Albumin/Globulin Ratio 1.4 (1.1-2.2); Alkaline Phosphatase 92 Units/L (34-104); Aspartate Amino Transferase 15 Units/L (13-39); BUN/Creatinine Ratio 27 (6-26); Bilirubin,Total 0.3 mg/dL (0.3-1.0); Blood Urea Nitrogen 23 mg/dL (6-20); Calcium 8.8 mg/dL (8.6-10.3); Carbon Dioxide 25 mEq/L (23-29); Chloride 104 mEq/L (98-107); Globulin 2.7 g/dL (2.4-3.5); Glucose 146 mg/dL (70-105); Osmolality,Calculated 294 (280-300); Potassium 4.5 mEq/L (3.5-5.1); Sodium 139 mEq/L (136-145); Total Protein 6.4 g/dL (6.4-8.9); eGFR For African Americans > 60 (> 60); eGFR For Non-African Americans > 60 (> 60)
[2021-09-11] MEDS: BISOPROLOL FUMARATE 10 MG PO SCH (08:02)
[2021-09-11] MEDS: Gabapentin 300 MG CAPSULE PO SCH ×3 (08:03→19:49)
[2021-09-11] MEDS: Lactobacillus 1 EACH CAP.SPRINK PO SCH ×2 (08:03→19:49)
[2021-09-11] MEDS: Magnesium Oxide 400 MG TABLET PO SCH ×2 (08:03→19:50)
[2021-09-11] MEDS: Insulin LISPRO 300 UNITS/3 ML VIAL SUBQ SCH ×4 (08:03→19:26)
[2021-09-11] MEDS: lisinopriL 20 MG TABLET PO SCH (08:03)
[2021-09-11] MEDS: GlipiZIDE 5 MG TABLET PO SCH (08:03)
[2021-09-11] MEDS: Amoxicillin 500 MG CAPSULE PO SCH ×2 (08:03→17:11)
[2021-09-11] MEDS: *HR* OxyCODONE/APAP 10/325 TABLET PO PRN ×3 (08:03→19:49)
[2021-09-11] MEDS: *HR* Metformin 500 MG TABLET PO SCH ×2 (08:03→19:49)
[2021-09-11] MEDS: BuPROPion SR (12 HR) 150 MG TABLET PO SCH ×2 (08:03→19:49)
[2021-09-12] MEDS: *HR* OxyCODONE/APAP 10/325 TABLET PO PRN ×5 (01:15→20:24)
[2021-09-12] MEDS: *HR* OxyCODONE ER (12 HR) 10 MG TABLET PO SCH ×2 (05:24→18:09)
[2021-09-12] MEDS: *HR* Enoxaparin 40 MG/0.4 ML SYRINGE SQ SCH (05:25)
[2021-09-12] MEDS: Insulin LISPRO 300 UNITS/3 ML VIAL SUBQ SCH ×4 (07:54→20:05)
[2021-09-12] MEDS: BuPROPion SR (12 HR) 150 MG TABLET PO SCH ×2 (08:05→20:23)
[2021-09-12] MEDS: Gabapentin 300 MG CAPSULE PO SCH ×3 (08:05→20:23)
[2021-09-12] MEDS: *HR* Metformin 500 MG TABLET PO SCH ×2 (08:05→20:24)
[2021-09-12] MEDS: Magnesium Oxide 400 MG TABLET PO SCH ×2 (08:05→20:25)
[2021-09-12] MEDS: GlipiZIDE 5 MG TABLET PO SCH (08:05)
[2021-09-12] MEDS: Lactobacillus 1 EACH CAP.SPRINK PO SCH ×2 (08:05→20:23)
[2021-09-12] MEDS: BISOPROLOL FUMARATE 10 MG PO SCH (08:09)
[2021-09-12] MEDS: lisinopriL 20 MG TABLET PO SCH (09:00)
[2021-09-12] MEDS: tiZANidine 4 MG TABLET PO PRN ×2 (09:29→20:26)
[2021-09-13] MEDS: *HR* OxyCODONE/APAP 10/325 TABLET PO PRN ×4 (00:43→19:39)
[2021-09-13] MEDS: *HR* OxyCODONE ER (12 HR) 10 MG TABLET PO SCH ×2 (05:34→17:20)
[2021-09-13] MEDS: *HR* Enoxaparin 40 MG/0.4 ML SYRINGE SQ SCH (05:35)
[2021-09-13] MEDS: tiZANidine 4 MG TABLET PO PRN ×2 (08:02→17:21)
[2021-09-13] MEDS: Insulin LISPRO 300 UNITS/3 ML VIAL SUBQ SCH ×4 (08:02→19:31)
[2021-09-13] MEDS: BISOPROLOL FUMARATE 10 MG PO SCH (08:04)
[2021-09-13] MEDS: Lactobacillus 1 EACH CAP.SPRINK PO SCH ×2 (08:04→19:37)
[2021-09-13] MEDS: BuPROPion SR (12 HR) 150 MG TABLET PO SCH ×2 (08:04→19:38)
[2021-09-13] MEDS: lisinopriL 20 MG TABLET PO SCH (08:04)
[2021-09-13] MEDS: GlipiZIDE 5 MG TABLET PO SCH (08:04)
[2021-09-13] MEDS: *HR* Metformin 500 MG TABLET PO SCH ×2 (08:04→19:37)
[2021-09-13] MEDS: Gabapentin 300 MG CAPSULE PO SCH ×3 (08:04→19:38)
[2021-09-13] MEDS: Magnesium Oxide 400 MG TABLET PO SCH ×2 (08:04→19:37)
[2021-09-14] MEDS: *HR* OxyCODONE/APAP 10/325 TABLET PO PRN ×4 (00:58→19:40)
[2021-09-14] MEDS: *HR* OxyCODONE ER (12 HR) 10 MG TABLET PO SCH ×2 (05:39→16:50)
[2021-09-14] MEDS: *HR* Enoxaparin 40 MG/0.4 ML SYRINGE SQ SCH (05:40)
[2021-09-14 05:53] LABS: Basophils # 0.1 K/mcL (0.0-0.2); Basophils % 0.5 %; Eosinophils # 0.4 K/mcL (0.0-0.6); Eosinophils % 3.9 %; Hematocrit 31.9 % (35.3-44.9); Hemoglobin 10.2 g/dL (11.5-15.4); Immature Granulocytes % 0.6 % (0-4); Lymphocytes # 3.3 K/mcL (0.6-4.6); Lymphocytes % 33.9 %; Mean Corpuscular Hemoglobin 28.1 pg (28.0-33.3); Mean Corpuscular Volume 87.9 fL (83.0-100.0); Monocytes # 0.7 K/mcL (0.0-1.3); Monocytes % 6.8 %; Neutrophils # 5.3 K/mcL (1.6-8.9); Platelet Count 413 K/mcL (140-400); Red Blood Count 3.63 M/mcL (3.82-4.97); Red Cell Distribution Width 13.8 % (11.5-14.5); Segmented Neutrophils % 54.3 %; White Blood Count 9.8 K/mcL (4.3-11.1)
[2021-09-14 06:11] LABS: BUN/Creatinine Ratio 29 (6-26); Blood Urea Nitrogen 23 mg/dL (6-20); Calcium 8.5 mg/dL (8.6-10.3); Carbon Dioxide 25 mEq/L (23-29); Chloride 103 mEq/L (98-107); Glucose 160 mg/dL (70-105); Magnesium 1.1 mg/dL (1.6-2.6); Osmolality,Calculated 293 (280-300); Sodium 138 mEq/L (136-145); eGFR For African Americans > 60 (> 60); eGFR For Non-African Americans > 60 (> 60)
[2021-09-14] MEDS: Insulin LISPRO 300 UNITS/3 ML VIAL SUBQ SCH ×4 (07:41→19:40)
[2021-09-14] MEDS: Gabapentin 300 MG CAPSULE PO SCH ×3 (07:43→19:39)
[2021-09-14] MEDS: Magnesium Oxide 400 MG TABLET PO SCH ×2 (07:44→19:40)
[2021-09-14] MEDS: Lactobacillus 1 EACH CAP.SPRINK PO SCH ×2 (07:44→19:40)
[2021-09-14] MEDS: GlipiZIDE 5 MG TABLET PO SCH (07:44)
[2021-09-14] MEDS: tiZANidine 4 MG TABLET PO PRN ×2 (07:44→18:27)
[2021-09-14] MEDS: *HR* Metformin 500 MG TABLET PO SCH ×2 (07:44→19:40)
[2021-09-14] MEDS: lisinopriL 20 MG TABLET PO SCH (07:44)
[2021-09-14] MEDS: BuPROPion SR (12 HR) 150 MG TABLET PO SCH ×2 (07:44→19:39)
[2021-09-14] MEDS: BISOPROLOL FUMARATE 10 MG PO SCH (07:48)
[2021-09-15] MEDS: tiZANidine 4 MG TABLET PO PRN ×2 (01:08→08:29)
[2021-09-15] MEDS: *HR* OxyCODONE/APAP 10/325 TABLET PO PRN ×3 (01:08→12:57)
[2021-09-15] MEDS: *HR* Enoxaparin 40 MG/0.4 ML SYRINGE SQ SCH (05:36)
[2021-09-15] MEDS: *HR* OxyCODONE ER (12 HR) 10 MG TABLET PO SCH (05:36)
[2021-09-15] MEDS: Gabapentin 300 MG CAPSULE PO SCH (08:26)
[2021-09-15] MEDS: GlipiZIDE 5 MG TABLET PO SCH (08:27)
[2021-09-15] MEDS: lisinopriL 20 MG TABLET PO SCH (08:27)
[2021-09-15] MEDS: *HR* Metformin 500 MG TABLET PO SCH (08:27)
[2021-09-15] MEDS: BuPROPion SR (12 HR) 150 MG TABLET PO SCH (08:27)
[2021-09-15] MEDS: Magnesium Oxide 400 MG TABLET PO SCH (08:27)
[2021-09-15] MEDS: Lactobacillus 1 EACH CAP.SPRINK PO SCH (08:27)
[2021-09-15] MEDS: Insulin LISPRO 300 UNITS/3 ML VIAL SUBQ SCH ×2 (08:28→12:59)
[2021-09-15] MEDS: BISOPROLOL FUMARATE 10 MG PO SCH (08:31)
[2021-09-15 19:33] VITALS: BP 107/51; PULSE 70; RESP 16; TEMP 97.5; O2SAT 95
== END 2021-09-15 15:30 | disposition home health service (06) | DRG 300 ==
LOC: INPGRE 09-01 20:29
PROVIDERS: ADMIT Family Medicine; ATTEND Family Medicine